=== PATIENT | female | born 1990 | race Caucasian/White ===

== ENCOUNTER 2020-05-22 22:30 | Outpatient (CLI) | payer OTHER, SELFPAY ==
[2020-05-22 23:36] LABS: Basophils Absolute Auto 0.1 K/mm3 (0.0-0.1); Basophils Percent Auto 0.5 % (0.2-1.2); Eosinophils Absolute Auto 0.1 K/mm3 (0-0.3); Eosinophils Percent Auto 1.1 % (0-4.4); Hematocrit 38.1 % (37.0-47.0); Hemoglobin 13.3 g/dL (12.0-15.0); Immature Granulocyte Absolute 0.12 K/mm3 (0.00-0.031); Lymphocytes Absolute Auto 2.27 K/mm3 (0.9-3.2); Lymphocytes Percent Auto 18.5 % (18.3-44.2); Mean Corpuscular HGB Conc 34.9 g/dl (32-36); Mean Corpuscular Volume 91.6 fl (80-100); Mean Platelet Volume 11.4 fl (7.4-10.4); Monocytes Absolute Auto 0.6 K/mm3 (0.1-0.6); Monocytes Percent Auto 5.1 % (2.6-8.5); Neutrophils Absolute Auto 9.1 K/mm3 (1.3-6.7); Neutrophils Percent Auto 73.8 % (45.5-73.1); Platelet Count Result 176 k/mm3 (150-375); Red Blood Count 4.16 M/mm3 (4.2-5.4); Red Cell Distribution Width 12.8 % (11.5-14.5); White Blood Count 12.3 K/mm3 (4.5-10.0)
[2020-05-22 23:38] VITALS: BP 124/86; PULSE 86
[2020-05-22 23:41] LABS: Alanine Aminotransferase 21 U/L (4-35); Alkaline Phosphatase 145 U/L (38-126); Anion Gap 4 mmol/L (8-16); Aspartate Amino Transferase 26 U/L (14-36); Bilirubin,Total 0.2 mg/dL (0.2-1.3); Blood Urea Nitrogen 11 mg/dL (7-17); Calcium 8.6 mg/dL (8.4-10.2); Carbon Dioxide 22 mmol/L (22-30); Chloride 109 mmol/L (98-107); Estimated Glomerular Filt Rate > 60; Glucose 88 mg/dL (65-105); Potassium 3.8 mmol/L (3.4-5.0); Sodium 135 mmol/L (137-145); Uric Acid 4.9 mg/dL (2.5-7.5)
[2020-05-22 23:42] LABS: Add Urine Microscopic? YES; Appearance Urine Cloudy (Clear); Bacteria Urine Trace /hpf; Bilirubin Urine Negative (Negative); Blood Urine 1+ (Negative); Color Urine Straw (Yellow); Glucose Urine UA Negative (Negative); Ketones Urine Negative (Negative); Leukocyte Esterase Ur 1+ LEU/UL (NEGATIVE); Mucus Urine Rare /lpf; Nitrate Urine Negative (Negative); Protein Urine Negative (Negative); RBC Urine 0-2 /hpf (0-2); Specific Grav Ur 1.006 (1.001-1.035); Squamous Epithelial Cell Urine Few /hpf (Few); Urobilinogen Urine Negative mg/dL (<2.0)
[2020-05-22 23:43] LABS: Creatinine Urine 38.7 mg/dL; Total Protein Urine Random 15 mg/dL; Ur Ttl Prot Creatinine Ratio 0.39 mg/mg (0-0.20)
== END 2020-05-23 00:10 | disposition home or self-care (01) ==
PROVIDERS: Student in an Organized Health Care Education/Training Program; Visit Provider Obstetrics & Gynecology
DX: R03.0 Elevated blood-pressure reading, without diagnosis of hypertension (principal)
CPT/HCPCS: 36415; 59025; 80053; 81001; 82570; 84156; 84550; 85025; 87086; 87088

== ENCOUNTER 2020-06-05 10:07 | Outpatient (CLI) | payer OTHER, SELFPAY ==
[2020-06-05 10:38] LABS: Basophils Absolute Auto 0.1 K/mm3 (0.0-0.1); Basophils Percent Auto 0.6 % (0.2-1.2); Eosinophils Absolute Auto 0.1 K/mm3 (0-0.3); Hematocrit 37.2 % (37.0-47.0); Hemoglobin 13.3 g/dL (12.0-15.0); Immature Granulocyte Absolute 0.09 K/mm3 (0.00-0.031); Immature Granulocyte Percent A 0.8 % (0-0.5); Lymphocytes Percent Auto 16.9 % (18.3-44.2); Mean Corpuscular HGB Conc 35.8 g/dl (32-36); Mean Corpuscular Hemoglobin 32.1 pg (26-34); Mean Corpuscular Volume 89.9 fl (80-100); Mean Platelet Volume 11.1 fl (7.4-10.4); Monocytes Absolute Auto 0.6 K/mm3 (0.1-0.6); Monocytes Percent Auto 5.8 % (2.6-8.5); Neutrophils Percent Auto 74.9 % (45.5-73.1); Platelet Count Result 183 k/mm3 (150-375); Red Blood Count 4.14 M/mm3 (4.2-5.4); Red Cell Distribution Width 12.5 % (11.5-14.5); White Blood Count 10.7 K/mm3 (4.5-10.0)
--- NOTE | 2020-06-05 10:38 | PC.NURSE ---
1007-Pt sent down from 's office for elevated bp. [facility] labs ordered.
[2020-06-05 10:46] LABS: Creatinine Urine 86.5 mg/dL; Total Protein Urine Random 15 mg/dL; Ur Ttl Prot Creatinine Ratio 0.17 mg/mg (0-0.20)
[2020-06-05 10:50] LABS: Add Urine Microscopic? YES; Appearance Urine Cloudy (Clear); Bacteria Urine Trace /hpf; Bilirubin Urine Negative (Negative); Blood Urine 1+ (Negative); Color Urine Yellow (Yellow); Glucose Urine UA Negative (Negative); Ketones Urine Negative (Negative); Leukocyte Esterase Ur 1+ LEU/UL (NEGATIVE); Mucus Urine Rare /lpf; Nitrate Urine Negative (Negative); Protein Urine 1+ mg/dL (Negative); RBC Urine 0-2 /hpf (0-2); Specific Grav Ur 1.012 (1.001-1.035); Squamous Epithelial Cell Urine Many /hpf (Few); Urobilinogen Urine Negative mg/dL (<2.0)
[2020-06-05 10:51] LABS: Alanine Aminotransferase 17 U/L (4-35); Albumin Level 3.2 g/dL (3.5-5.1); Alkaline Phosphatase 164 U/L (38-126); Anion Gap 6 mmol/L (8-16); Aspartate Amino Transferase 22 U/L (14-36); Bilirubin,Total 0.3 mg/dL (0.2-1.3); Blood Urea Nitrogen 11 mg/dL (7-17); Carbon Dioxide 21 mmol/L (22-30); Chloride 109 mmol/L (98-107); Estimated Glomerular Filt Rate > 60; Glucose 78 mg/dL (65-105); Potassium 4.4 mmol/L (3.4-5.0); Sodium 136 mmol/L (137-145); Uric Acid 6.2 mg/dL (2.5-7.5)
[2020-06-05 11:46] VITALS: BP 140/90; PULSE 79
--- NOTE | 2020-06-05 13:41 | PC.NURSE ---
1150-Labs and bp's reported to , orders received to discharge pt home and have her f/u in office next Thu-.
[2020-06-05 13:47] VITALS: BP 140/90
== END 2020-06-05 11:55 | disposition home or self-care (01) ==
LOC: ANHOBOP 10:11
PROVIDERS: Visit Provider Obstetrics & Gynecology
DX: O13.9 Gestational [pregnancy-induced] hypertension without significant proteinuria, unspecified trimester (principal); Z3A.00 Weeks of gestation of pregnancy not specified
CPT/HCPCS: 36415; 59025; 80053; 81001; 82570; 84156; 84550; 85025; 87086; 87088

== ENCOUNTER 2020-06-13 15:44 | Inpatient (IN) | payer OTHER, SELFPAY ==
[2020-06-13] VITALS (10 sets, daily range): BP systolic 121–153; BP diastolic 66–99; PULSE 73–96; RESP 18; TEMP 36.3–36.6; BMI 35.0
[2020-06-13 16:22] LABS: Basophils Absolute Auto 0.1 K/mm3 (0.0-0.1); Basophils Percent Auto 0.5 % (0.2-1.2); Eosinophils Absolute Auto 0.1 K/mm3 (0-0.3); Eosinophils Percent Auto 0.8 % (0-4.4); Hematocrit 37.7 % (37.0-47.0); Hemoglobin 13.7 g/dL (12.0-15.0); Immature Granulocyte Absolute 0.07 K/mm3 (0.00-0.031); Immature Granulocyte Percent A 0.6 % (0-0.5); Lymphocytes Absolute Auto 1.99 K/mm3 (0.9-3.2); Lymphocytes Percent Auto 16.3 % (18.3-44.2); Mean Corpuscular HGB Conc 36.3 g/dl (32-36); Mean Corpuscular Hemoglobin 32.7 pg (26-34); Mean Platelet Volume 11.4 fl (7.4-10.4); Monocytes Absolute Auto 0.6 K/mm3 (0.1-0.6); Monocytes Percent Auto 4.8 % (2.6-8.5); Neutrophils Absolute Auto 9.4 K/mm3 (1.3-6.7); Platelet Count Result 183 k/mm3 (150-375); Red Blood Count 4.19 M/mm3 (4.2-5.4); Red Cell Distribution Width 12.6 % (11.5-14.5); White Blood Count 12.2 K/mm3 (4.5-10.0)
--- NOTE | 2020-06-13 16:24 | LDADM ---
This patient, Meri Stewart, was admitted to Labor/Delivery/Recovery 108 on 06/13/20 at 15:44. Plans for labor, pain management and were discussed with patient. Patient/family oriented to hospital policies and general routines including ID bracelet, bed and alarms, visiting hours, pain management, procedures, bathroom and other care routines, personal items, smoking policy, room service/diet and guest tray routines, infant security routines, and visiting hours. Patient/Family are encouraged to report perceived risks to care and to ask questions if they do not understand what they are told or what they should do. See OBIX for further documentation.
[2020-06-13] MEDS: DINOPROSTONE 10 MG VAG INSERT VAGINAL (16:45)
--- NOTE | 2020-06-13 17:16 | P.PNAN_ITS ---
Anes - Initial Pre Proc Eval Procedure: labor pain Date/Time: 06/13/20 17:16 Surgeon: Zi Zuleta MD Pre Op Diagnosis: labor pain Pre Op Diagnosis: induction Patient Data Age: 30 Gender: F Height: 1.65 m Weight: 95.5 kg Last Vital Signs Pulse 77 06/13/20 17:15 BP 141/88 H 06/13/20 17:15 Allergies Allergy/AdvReac Type Severity Reaction Status Date / Time Penicillins Allergy Rash Verified 05/23/20 00:19 vancomycin Allergy Redness of Verified 05/23/20 12:32 Skin Home Medications Medication Instructions Recorded Confirmed Type PNV cmb#95-ferrous fumarate-FA 1 tablet PO DAILY 05/23/20 05/23/20 History [] Laboratory Tests 06/13/20 06/13/20 16:17 16:17 WBC 12.2 K/mm3 H K/mm3 (4.5-10.0) RBC 4.19 M/mm3 L M/mm3 (4.2-5.4) Hgb 13.7 g/dL g/dL (12.0-15.0) Hct 37.7 % % (37.0-47.0) MCV 90.0 fl fl (80-100) MCH 32.7 pg pg (26-34) MCHC 36.3 g/dl H g/dl (32-36) RDW 12.6 % % (11.5-14.5) Plt Count 183 k/mm3 k/mm3 (150-375) MPV 11.4 fl H fl (7.4-10.4) Immature Gran % (Auto) 0.6 % H % (0-0.5) Neut % (Auto) 77.0 % H % (45.5-73.1) Lymph % (Auto) 16.3 % L % (18.3-44.2) [place] % (Auto) 4.8 % % (2.6-8.5) Eos % (Auto) 0.8 % % (0-4.4) Baso % (Auto) 0.5 % % (0.2-1.2) Lymph # (Auto) 1.99 K/mm3 K/mm3 (0.9-3.2) [place] # (Auto) 0.6 K/mm3 K/mm3 (0.1-0.6) Eos # (Auto) 0.1 K/mm3 K/mm3 (0-0.3) Baso # (Auto) 0.1 K/mm3 K/mm3 (0.0-0.1) Abs Immat Gran (auto) 0.07 K/mm3 H K/mm3 (0.00-0.031) Absolute Neuts (auto) 9.4 K/mm3 H K/mm3 (1.3-6.7) Absolute Nucleated RBC 0.0 K/mm3 K/mm3 (0.0-0.012) Nucleated RBC % 0.0 % % (0.0-0.2) RPR Pending Patient hx anesthesia problems: none Family hx anesthesia problems: none [facility] Family History Family History (Updated 05/23/20 @ 12:33 by Santos Marquez RN) Sibling Type I diabetes mellitus Social History Social History Smoking status: Never smoker Substance use: never Gender identity (if verbalized by the patient): Female Spiritual care concerns: No Anes - Eval Final PreProcedure Day of Procedure 06/13/20 17:16 Patient weight: obese ASA classification: II Anesthesia type and monitoring: regional epidural Informed Consent: The patient's anesthetic plan and its attendant risks and benefits were discussed with the patient/family/POA. Questions were solicited and answers provided to the satisfaction of the patient/family/POA.
[2020-06-13 19:16] LABS: Uric Acid 5.8 mg/dL (2.5-7.5)
[2020-06-13 19:17] LABS: Alanine Aminotransferase 15 U/L (4-35); Albumin Level 2.9 g/dL (3.5-5.1); Alkaline Phosphatase 169 U/L (38-126); Anion Gap 2 mmol/L (8-16); Aspartate Amino Transferase 22 U/L (14-36); Bilirubin,Total 0.3 mg/dL (0.2-1.3); Blood Urea Nitrogen 15 mg/dL (7-17); Carbon Dioxide 25 mmol/L (22-30); Chloride 106 mmol/L (98-107); Estimated CRCL calculation 115 ml/min; Estimated Glomerular Filt Rate > 60; Glucose 92 mg/dL (65-105); Potassium 3.9 mmol/L (3.4-5.0); Sodium 133 mmol/L (137-145)
[2020-06-14] VITALS (92 sets, daily range): BP systolic 110–170; BP diastolic 67–102; PULSE 65–173; RESP 18–20; TEMP 36.2–37.7
[2020-06-14] MEDS: LACTATED RINGERS 1,000 ML 125 ML IV CONT ×3 (05:30→17:28)
[2020-06-14] MEDS: OXYTOCIN 30 UNITS/NS 500 ML 30 UNITS/500 ML BAG 4 UNITS IV CONT (05:30)
[2020-06-14 08:52] LABS: Rapid Plasma Reagin Non-Reactive (NonReactive)
--- NOTE | 2020-06-14 09:04 | WPDOBADMIT ---
Obstetrics - Admit Note Admission Note: record reviewed. Additions to the history and/or subsequent changes in the physical findings follow. 30 y/o G1 at 39 3/7 weeks here for induction of labor. Cervidil overnight. Feeling some mild contractions now with oxytocin. AVSS (bp 150/90 this morning) NST reactive TOCO: irregular contractions ABD soft, nontender, gravid, vertex EXT nontender Cervix 2/80/-2. AROM with clear fluid. A: IUP at term with gestational hypertension. P: Oxytocin. Anticipate .
--- NOTE | 2020-06-14 12:28 | PM.OBPNLAB ---
Pain Control Date/time seen: 06/14/20 12:28 Comments: Comfortable with epidural. Pelvic Exam Dilation (cm): 4 Effacement (%): 80 station: -1 Comments: AROM forebag. IUPC placed. Contractions Contraction pattern: Regular Status status: Category l Assessment and Plan Comments: Continue labor.
[2020-06-14] MEDS: ONDANSETRON INJ 4 MG/2 ML VIAL IV PUSH (15:10)
--- NOTE | 2020-06-14 16:34 | PM.OBPNLAB ---
Pain Control Date/time seen: 06/14/20 16:34 Comments: Comfortable. Pelvic Exam Dilation (cm): 6 Effacement (%): 80 station: 0 Contractions Contraction pattern: Irregular Status status: Category l Comments: Reactive. Assessment and Plan Pitocin rate (mU/min): 12 Comments: Continue labor.
--- NOTE | 2020-06-14 21:13 | PM.OBPRVD ---
OB - Delivery Note Procedure Delivery date: 06/14/20 Procedure: Induction of labor with Induction method: per pitocin protocol and per cervidil protocol Delivery augmentation: rupture of membranes Delivery monitor: external FHT, external uterine and internal uterine Route of delivery: Laceration Description: Perineal - 2nd Degree Delivery repair: vicryl (3-0) Specimen: Yes (cord blood) Quantitative Blood Loss (ml): 240 Anesthesia type: Epidural Disposition: PACU Complications: None Narrative: 30 y/o G1 at 39 2/7 weeks gestation who presented to the hospital for induction of labor due to gestational hypertension. Cervidil was placed overnight, withdrawn the following morning. Oxytocin was administered intravenously. Amniotomy was performed with return of clear fluid. She received an epidural for pain control. Her labor progressed and her cervix dilated completely. She pushed with good effort and delivered the infant's head to the perineum, followed by the body. The nose and mouth were bulb suctioned. After a delay, the cord was clamped and cut. The was handed off the field. Cord blood was collected. The placenta delivered spontaneously and was grossly normal in appearance. The usual 3 vessel cord was noted. A second degree midline perineal laceration was sustained. This was reapproximated using 3 0 Vicryl in the usual layered fashion. Excellent hemostasis resulted as did excellent reapproximation of the normal anatomy. Needle and instrument counts were correct. The patient was taken to recovery room in stable condition. The infant went to the nursery in stable condition. I was present and scrubbed for the entire delivery. Baby Date of : 06/14/20 Time of : 20:48 Weeks of gestation at delivery: 39 Infant gender: Female Weight (pounds): 7 Weight (ounces): 4 presentation: vertex position: Right Occiput Anterior Placenta delivery description: Spontaneous and Normal Configuration cord vessel description: 3 Vessels, Nuchal Cord and Delayed Cord Clamping score one minute: 8 score five minutes: 9
--- NOTE | 2020-06-14 21:16 | PM.OBDSVD ---
DS: Admitting Diagnosis Admitting Diagnosis Admitting Diagnosis: IUP at 39 2/7 weeks gestation Gestational hypertension DS: Discharge Diagnosis Discharge Diagnosis (1) (normal spontaneous vaginal delivery): Code(s): O80 - Encounter for full-term uncomplicated delivery Status: Acute OB - DS: Summary OB Procedures : None OB Procedures Intrapartum: Spontaneous Vag Delivery OB Procedures: : None DS: Data Data Completed and Pending Labs on day of discharge: Labs from last 24 hours 06/13/20 16:17 RPR Non-reactive Discharge Plan Discharge Attending physician on discharge: Zi Zuleta Discharging Clinician: Zi Zuleta Patient Disposition: Home, Self-Care Activity: pelvic rest Diet: regular Discharge Instructions: Call or return if temperature above 100.4? F, increased abdominal pain, increased vaginal bleeding or any new problems. Stand Alone Forms: General Discharge Information Follow-up/Referrals: Zi Zuleta MD [Physician] - 6 Weeks Discharge Medications: New ibuprofen 600 mg tablet 600 mg PO Q6H PRN (Reason: cramps) Qty: 30 RF: 0 No Action PNV cmb#95-ferrous fumarate-FA [] 28 mg iron- 800 mcg Tablet 1 tablet PO DAILY RF: 0 Date of admission: 06/13/20 15:44 Primary Care Provider: UNKNOWN,DOCTOR Admitting Provider: Zi Zuleta Attending physician on admission: Zi Zuleta Condition: Stable
[2020-06-14] MEDS: OXYTOCIN 30 UNITS/NS 500 ML 30 UNITS/500 ML BAG 125 UNITS IV CONT (21:18)
[2020-06-14] MEDS: ACETAMINOPHEN 500 MG TABLET 1000 MG (21:19)
[2020-06-14] MEDS: IBUPROFEN 600 MG TABLET PO (23:04)
[2020-06-14] MEDS: WITCH HAZEL 40 PADS 1 PAD TOPICAL (23:04)
[2020-06-14] MEDS: BENZOCAINE 20% AER SPR (*SP) 56 GM CAN 1 SPRAY TOPICAL (23:04)
[2020-06-15] VITALS (8 sets, daily range): BP systolic 130–147; BP diastolic 87–97; PULSE 70–88; RESP 16–18; TEMP 36.5–36.9; O2SAT 97–99
[2020-06-15] MEDS: ZOLPIDEM TARTRATE (*CRX) 5 MG TABLET (01:00)
[2020-06-15 05:58] LABS: Hematocrit 34.4 % (37.0-47.0); Hemoglobin 12.1 g/dL (12.0-15.0)
[2020-06-15] MEDS: IBUPROFEN 600 MG TABLET PO ×3 (08:00→22:01)
[2020-06-15] MEDS: MULTIVIT/MIN/PREN/FOL AC/IRON TABLET 1 TAB PO (08:00)
--- NOTE | 2020-06-15 08:24 | PM.OBPNVD ---
OB - PN: Subj Subjective Date/time seen: 06/15/20 08:24 Narrative: Pain OK. OB - PN: Obj Data Labs CBC & Chem 7: 06/15/20 04:17 06/13/20 18:59 Labs: Laboratory Results - last 24 hr 06/13/20 06/15/20 16:17 04:17 Hgb 12.1 Hct 34.4 L RPR Non-reactive OB - PN A/P Plan Comments: A: PPD#1, doing well. P: Routine care. Exam Psych: Other: AVSS ABD soft, nontender, fundus firm EXT nontender
[2020-06-15] MEDS: DOCUSATE SODIUM 100 MG CAPSULE PO ×2 (09:11→16:21)
--- NOTE | 2020-06-15 13:01 | WPDANLDPN2 ---
Anes-Prog Note L&D Date/Time: 06/15/20 13:01 Comfortable throughout: labor and delivery Neuraxial method: epidural Epidural/Spinal procedure site: clean & non-tender Neuro status: Neuro function grossly intact. Cardiovascular status: normal Respiratory status: normal Airway patency: baseline Mental status: baseline Post-Op hydration status: normal Vital Signs: Last Vital Signs Temp 36.9 C 06/15/20 07:50 Pulse 70 06/15/20 07:50 Resp 16 06/15/20 07:50 BP 136/89 06/15/20 07:50 Pulse Ox 97 06/15/20 07:50 Pain score (VAS): 0 I/O: Intake & Output 06/14/20 06/15/20 06/15/20 23:59 07:59 15:59 Intake Total 2400 Output Total 173 Balance 2400 -173 Post-procedural complaints: none Patient feedback: Patient satisfied with anesthetic care.
[2020-06-15] MEDS: ZOLPIDEM TARTRATE (*CRX) 5 MG TABLET PO (22:01)
[2020-06-15] MEDS: WITCH HAZEL 40 PADS 1 PAD TOPICAL (22:02)
[2020-06-16 02:45] VITALS: BP 139/86; PULSE 78; RESP 18; TEMP 36.8; O2SAT 98
[2020-06-16] MEDS: IBUPROFEN 600 MG TABLET PO (10:24)
[2020-06-16 10:25] VITALS: BP 132/82; PULSE 80; RESP 16; TEMP 36.4; O2SAT 99
[2020-06-16] MEDS: MEASLES,MUMPS,RUBELLA VACCINE 0.5 ML VIAL SUB-Q (10:25)
[2020-06-16] MEDS: DOCUSATE SODIUM 100 MG CAPSULE PO (10:25)
--- NOTE | 2020-06-16 11:50 | PM.OBPNVD ---
OB - PN: Subj Subjective Date/time seen: 06/16/20 11:50 Narrative: Pain OK. Would like to go home. OB - PN: Obj Data Labs CBC & Chem 7: 06/15/20 04:17 06/13/20 18:59 OB - PN A/P Plan Comments: A: PPD#2, doing well. P: Home to f/u 6 weeks. Exam Psych: Other: AVSS ABD soft, nontender, fundus firm EXT nontender
--- NOTE | 2020-06-16 14:55 | PC.NURSE ---
1100 Patient viewed the discharge video Mother & Baby Care, The First Two Weeks . Patient was given the opportunity and encouraged to ask questions. Patient verbalized understanding of information shared and has been given the mother/baby guide for home reference.
[2020-06-18 09:31] VITALS: BP 136/85; PULSE 68; RESP 20; TEMP 36.8; O2SAT 100
== END 2020-06-16 13:51 | disposition home or self-care (01) | DRG 807 ==
LOC: ANHLDR 06-14 21:17 → ANHOB2 06-15 00:53
PROVIDERS: Admitting Provider Obstetrics & Gynecology; Visit Provider Obstetrics & Gynecology
DX: O13.4 Gestational [pregnancy-induced] hypertension without significant proteinuria, complicating childbirth (principal); Z37.0 Single live birth; Z3A.39 39 weeks gestation of pregnancy; O70.1 Second degree perineal laceration during delivery; O69.81X0 Labor and delivery complicated by cord around neck, without compression, not applicable or unspecified; O99.214 Obesity complicating childbirth; E66.9 Obesity, unspecified
CPT/HCPCS: 36415; 80053; 84550; 85014; 85018; 85025; 86592; 86850; 86900; 86901; 90710; A9270; J2405; J2590; J2795; J7120